=== PATIENT | male | born 1955 | race Caucasian/White ===

== ENCOUNTER 2017-03-17 16:36 | Observation (INO) | payer MEDICARE, OTHER ==
[2017-03-17] MEDS ORDERED: NITROGLYCERIN OINT 1 INCH/GM PACKET TOPICAL STA (16:54)
[2017-03-17] MEDS ORDERED: ASPIRIN 81 MG PO STA (16:54)
--- NOTE | 2017-03-17 16:57 | ED ---
Chest Pain HPI - General Chief Complaint: Chest Pain Stated Complaint: Chest Pain, Abnormal EKG Time Seen by Provider: 03/17/17 16:50 Source: patient, RN notes reviewed Mode of arrival: wheelchair Limitations: no limitations - History of Present Illness Initial Comments: This is a 61-year-old male with a history of heart disease bypass surgery at age 42 who states he had the onset of cold symptoms 2 days ago but about 12 noon today started developing retrosternal chest pain and pressure 4/10 severity. He went to see his doctor as he had an appointment anyway the pain did resolve after he was given nitroglycerin. He does state he takes 81 mg aspirin every night he has not taken any today thus far. He currently has no pain no fevers chills sweats cough or phlegm production. He reports no other complaints at this time he does state that his doctor saw some intermittent the on his EKG that was done in the office. A copy was sent for examination. MD Complaint: chest pain - Related Data Home Medications Medication Instructions Recorded Confirmed ALPRAZolam [Xanax] 1 mg PO TID PRN 03/17/17 03/17/17 Aspirin [Adult Low Dose Aspirin EC] 81 mg PO DAILY 03/17/17 03/17/17 Atorvastatin Calcium [Lipitor] 80 mg PO DAILY 03/17/17 03/17/17 Cholecalciferol [Vitamin D3] 5,000 unit PO DAILY 03/17/17 03/17/17 Dapagliflozin Propanediol [Farxiga] 10 mg PO DAILY 03/17/17 03/17/17 Enalapril Maleate [Vasotec] 20 mg PO DAILY 03/17/17 03/17/17 Exenatide Microspheres [Bydureon 2 mg SQ TU 03/17/17 03/17/17 Pen] Gemfibrozil [Lopid] 600 mg PO BID 03/17/17 03/17/17 HYDROcodone/APAP 10-325MG [[place] 1 tab PO QID PRN 03/17/17 03/17/17 10-325] Ibuprofen [Motrin] 800 mg PO TID PRN 03/17/17 03/17/17 Metoprolol Tartrate [Lopressor] 50 mg PO BID 03/17/17 03/17/17 Omeprazole 20 mg PO DAILY 03/17/17 03/17/17 Potassium Chloride ER [K-Dur 20] 20 meq PO DAILY 03/17/17 03/17/17 metFORMIN HCL 1,000 mg PO BID 03/17/17 03/17/17 Allergies Allergy/AdvReac Type Severity Reaction Status Date / Time No Known Allergies Allergy Verified 03/17/17 17:02 Review of Systems ROS Statement: Those systems with pertinent positive or pertinent negative responses have been documented in the HPI. ROS Other: All systems not noted in ROS Statement are negative. EKG Findings - EKG Results: EKG: interpreted by ADINAD (EKG shows sinus rhythm at 64 here 140 QRS 1:30 2T says QTC of 428/441 left exodeviation right bundle-branch block this was consistent with one submitted from the office.) Past Medical History Past Medical History: Diabetes Mellitus, Hearing Disorder / Deafness, Hypertension, Myocardial Infarction ([place]), Osteoarthritis ([place]) History of Any Multi-Drug Resistant Organisms: None Reported Past Surgical History: Coronary Bypass/CABG, Heart Catheterization With Stent Additional Past Surgical History / Comment(s): right leg Past Psychological History: No Psychological Hx Reported Smoking Status: Current some day smoker Past Alcohol Use History: None Reported Past Drug Use History: None Reported General Exam - General Exam Comments Initial Comments: This is a well-developed well-nourished awake alert oriented 3 male Limitations: no limitations General appearance: alert, in no apparent distress Head exam: Present: atraumatic, normocephalic, normal inspection Eye exam: Present: normal appearance, PERRL, EOMI. Absent: scleral icterus, conjunctival injection, periorbital swelling ENT exam: Present: normal exam, mucous membranes moist Neck exam: Present: normal inspection. Absent: tenderness, meningismus, lymphadenopathy Respiratory exam: Present: normal lung sounds bilaterally. Absent: respiratory distress, wheezes, rales, rhonchi, stridor Cardiovascular Exam: Present: regular rate, normal rhythm, normal heart sounds. Absent: systolic murmur, diastolic murmur, rubs, gallop, clicks GI/Abdominal exam: Present: soft, normal bowel sounds. Absent: distended, tenderness, guarding, rebound, rigid Extremities exam: Present: normal inspection, full ROM, normal capillary refill. Absent: tenderness, pedal edema, joint swelling, calf tenderness Back exam: Present: normal inspection Neurological exam: Present: alert, oriented X3, CN II-XII intact Psychiatric exam: Present: normal affect, normal mood Skin exam: Present: warm, dry, intact, normal color. Absent: rash Course Vital Signs 03/17/17 03/17/17 03/17/17 16:39 18:04 19:09 Temperature 97.3 F L 97.8 F Pulse Rate 71 69 69 Respiratory 16 18 18 Rate Blood Pressure 120/69 114/73 91/65 O2 Sat by Pulse 96 99 97 Oximetry Chest Pain MDM - MDM I did review the imaging and reports no acute findings. I did discuss case the patient and his family as well as with the on-call service patient will be admitted for evaluation by cardiology. Disposition Clinical Impression: Chest pain, Unstable angina pectoris Disposition: ADMITTED IP TO THIS HOSP Condition: Stable Referrals: Noble Rodriguez MD [Primary Care Provider] - 1-2 days
[2017-03-17 17:05] LABS: Basophils # (A) 0.1 k/uL (0-0.2); Basophils % (A) 1 %; CH 29.9; CHCM 33.9; Eosinophils # (A) 0.6 k/uL (0-0.7); Eosinophils % (A) 9 %; HCT 46.8 % (39.0-53.0); HDW 2.92; HGB 15.5 gm/dL (13.0-17.5); Luc # (Auto) 0.27; Luc % (Auto) 4; Lymphocytes # (A) 2.3 k/uL (1.0-4.8); Lymphocytes % (A) 33 %; MCH 29.3 pg (25.0-35.0); MCHC 33.1 g/dL (31.0-37.0); MCV 88.6 fL (80.0-100.0); Mean Platelet Volume 7.8; Monocytes # (A) 0.6 k/uL (0-1.0); Monocytes % (A) 8 %; Neutrophils # (A) 3.1 k/uL (1.3-7.7); Neutrophils % (A) 45 %; RBC 5.28 m/uL (4.30-5.90); WBC 6.8 k/uL (3.8-10.6); WBC (Perox) 6.87
--- NOTE | 2017-03-17 17:12 | XR ---
EXAMINATION TYPE: XR chest 2V DATE OF EXAM: 03/17/2017 COMPARISON: NONE HISTORY: Shortness of breath TECHNIQUE: Frontal and lateral views of the chest are obtained. FINDINGS: Scattered senescent parenchymal changes noted. Hyperinflation compatible with COPD. No evidence for infiltrate. No evidence for atelectasis. Heart size is stable. Mediastinal structures are stable and grossly unremarkable. No evidence for hilar prominence. Degenerative changes dorsal spine. IMPRESSION: 1. No evidence for acute pulmonary disease.
[2017-03-17 17:24] LABS: Partial Thromboplastin Time 22.5 sec (22.0-30.0); Prothrombin Time 10.2 sec (9.0-12.0)
[2017-03-17 17:32] LABS: Creatine Kinase 89 U/L (55-170)
[2017-03-17 17:34] LABS: ALT 33 U/L (21-72); AST 23 U/L (17-59); Alkaline Phosphatase 100 U/L (38-126); Anion Gap 14 mmol/L; Blood Urea Nitrogen 13 mg/dL (9-20); Calcium 11.2 mg/dL (8.4-10.2); Carbon Dioxide 22 mmol/L (22-30); Chloride 103 mmol/L (98-107); Glucose 97 mg/dL (74-99); Magnesium 1.7 mg/dL (1.6-2.3); Non-African American GFR(MDRD) >60 (>60 ml/min/1.73 sqM); Potassium 4.5 mmol/L (3.5-5.1); Sodium 139 mmol/L (137-145); Total Bilirubin 0.3 mg/dL (0.2-1.3); Total Protein 7.4 g/dL (6.3-8.2)
[2017-03-17 17:44] LABS: Creatine Kinase MB 1.1 ng/mL (0.0-2.4); Troponin I <0.012 ng/mL (0.000-0.034)
[2017-03-17] MEDS ORDERED: HEPARIN SODIUM,PORCINE 5,000 UNIT/ML 1 ML VIAL IV ONE (19:35)
[2017-03-17] MEDS ORDERED: NITROGLYCERIN SL TABS 0.4 MG TAB SUBLINGUAL PRN (19:35)
[2017-03-17] MEDS ORDERED: ALPRAZolam 0.5 MG TAB PO PRN (19:38)
[2017-03-17] MEDS ORDERED: IBUPROFEN 800 MG TAB PO PRN (19:38)
[2017-03-17] MEDS ORDERED: HYDROcodone/APAP 10-325MG 1 EACH TAB PO PRN (19:38)
[2017-03-17] MEDS ORDERED: SODIUM CHLORIDE 0.9% 1,000 ML IV SCH (19:45)
[2017-03-17] MEDS ORDERED: NON-FORMULARY DRUG (Exenatide Microspheres [Bydureon Pen] 2 MG) SQ SCH (19:45)
[2017-03-17] MEDS ORDERED: HEPARIN SODIUM,PORCINE/D5W PMX 25,000 UNIT in DEXTROSE/WATER 1 500ML.BAG IV SCH (19:45)
[2017-03-17 21:06] VITALS: BMI 32.5
[2017-03-17 21:24] LABS: Glucose,Whole Blood 122 mg/dL (75-99)
[2017-03-17] MEDS: GEMFIBROZIL 600 MG TAB PO SCH (21:39)
[2017-03-17] MEDS: METOPROLOL TARTRATE 50 MG TAB PO SCH (21:39)
[2017-03-17] MEDS: metFORMIN 500 MG TAB PO SCH (21:39)
[2017-03-17] MEDS: INSULIN LISPRO (humaLOG) 300 UNIT/3 ML VIAL SQ SCH (21:41)
--- NOTE | 2017-03-17 22:24 | P.HPIM ---
History of Present Illness H&P Date: 03/17/17 Chief Complaint: Chest pain This is a 61-year-old male patient of Michael Pittman with chronic stable medical conditions that include diabetes mellitus type 2, hard of hearing, hypertension, myocardial infarction, heart catheterization, coronary artery bypass grafting, osteoarthritis who presented to the emergency department who stated he had onset of cold symptoms about 2 days ago and was failing to get better. Had an appointment for later today with his primary care physician however about 12 noon today started developing retrosternal chest pain and pressure that was 4 out of 10 in severity. Called his physician was directed by the physician to come directly to the office, told that physician about the chest pain received nitroglycerin and chest pain was improved. Chest pain was described as retrosternal nonradiating no associated symptoms of diaphoresis nausea vomiting dizziness lightheadedness weakness. Given the patient's extensive cardiac history and history of diabetes was admitted for chest pain. REVIEW OF SYSTEMS GEN.: [ Tired] EYES: [Watery eyes] HEENT: [Congested nose] NECK: [None] RESPIRATORY: [Nonproductive dry hacking cough] CARDIOVASCULAR: [Chest pain ] GASTROINTESTINAL: [None] GENITOURINARY: [None] MUSCULOSKELETAL: [Painful joints] LYMPHATICS: [None] HEMATOLOGICAL: [None] PSYCHIATRY: [None] NEUROLOGICAL: [None] PAST MEDICAL HISTORY Past medical history: Diabetes mellitus type 2, hearing disorder, hypertension, myocardial infarction , osteoarthritis. 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 Smoking history: Occasional pipe smoking once every other month or so Alcohol use history: Denies Drug use history: Denies FAMILY HISTORY: Mother , 83 [place] Father: , 55, [place] HOME MEDICATION: Ibuprofen 800 mg by mouth 3 times a day when necessary Hydrocodone 10/325 one tablet by mouth 4 times a day when necessary Bydureon 2 mg subcu Thursday Alprazolam 1 mg by mouth 3 times a day when necessary Metformin 1000 mg by mouth twice a day Farxiga 10 mg by mouth daily Cholecalciferol 5000 units by mouth daily Atorvastatin 80 mg by mouth daily Aspirin 81 mg by mouth daily Omeprazole 20 mg by mouth daily Gemfibrozil 600 mg by mouth twice a day potassium chloride ER 20 mEq by mouth daily Metoprolol 50 mg by mouth twice a day Enalapril maleate 20 mg by mouth daily ALLERGIES: No known ALLERGIES VITAL SIGNS: [Temperature 98.1, pulse 72, respirations 16, blood pressure 96/66 , oxygen saturation 100% on 2 L. BMI noted] GENERAL: [Average built, sitting up, comfortable]. EYES: [Pupils equal. Conjunctiva rhina]l. HEENT: [External appearance of nose and ears normal, oral cavity grossly normal] . NECK: [JVD not raised; masses not palpable]. HEART: [First and second heart sounds are normal; no edema]. LUNGS:[ Respiratory rate normal; clear to auscultation]. ABDOMEN: [Soft, nontender, liver spleen not palpable, no masses palpable]. LYMPHATICS: [No lymph nodes palpable in the axilla and neck]. PSYCH: [Alert and oriented x3; mood and affect rhina]l. NEUROLOGICAL: [Cranial nerves grossly intact; no facial asymmetry, power and sensation grossly intact]. INVESTIGATIONS: CBC grossly unremarkable, BMP all values within normal limits. Accu-Cheks noted. ASSESSMENT: -Acute chest pain in a patient with an extensive cardiac history, somewhat pleuritic and atypical in nature, patient does currently have an upper respiratory infection -Coronary artery disease in a patient with history of CABG -Diabetes mellitus type 2 on oral and injectable hypoglycemics -Primary osteoarthritis in multiple joints bilateral -Hyperlipidemia -GERD -Essential hypertension -Chronic nicotine dependence, patient is a current smoker -Anxiety not otherwise specified PLAN: Home medications reordered cardiology consulted, heparin drip initiated. Plan of care discussed at length with at the bedside with patient and questions were answered to the best of my ability. He is in agreement we will follow closely. COOK HELPER MEAT STATEMENT: Patient was seen and examined by nurse practitioner Jonelle Rodríguez and all elements of the case discussed with attending Dr. Maher. Past Medical History Past Medical History: Diabetes Mellitus, Hearing Disorder / Deafness, Hypertension, Myocardial Infarction ([place]), Osteoarthritis ([place]) Additional Past Medical History / Comment(s): BACK PAIN Last Myocardial Infarction Date:: UNKNOWN History of Any Multi-Drug Resistant Organisms: None Reported Past Surgical History: Coronary Bypass/CABG, Heart Catheterization With Stent Additional Past Surgical History / Comment(s): right leg Past Anesthesia/Blood Transfusion Reactions: No Reported Reaction Date of Last Stent Placement:: 1997 Past Psychological History: No Psychological Hx Reported Smoking Status: Light tobacco smoker Past Alcohol Use History: None Reported Additional Past Alcohol Use History / Comment(s): OCCASIONALY USES A PIPE Past Drug Use History: None Reported - Past Family History Mother Family Medical History: Memory Impairment Father Family Medical History: Myocardial Infarction ([place]) Medications and Allergies Home Medications Medication Instructions Recorded Confirmed Type ALPRAZolam [Xanax] 1 mg PO TID PRN 03/17/17 03/17/17 History Aspirin [Adult Low Dose Aspirin EC] 81 mg PO DAILY 03/17/17 03/17/17 History Atorvastatin Calcium [Lipitor] 80 mg PO DAILY 03/17/17 03/17/17 History Cholecalciferol [Vitamin D3] 5,000 unit PO DAILY 03/17/17 03/17/17 History Dapagliflozin Propanediol [Farxiga] 10 mg PO DAILY 03/17/17 03/17/17 History Enalapril Maleate [Vasotec] 20 mg PO DAILY 03/17/17 03/17/17 History Exenatide Microspheres [Bydureon 2 mg SQ TU 03/17/17 03/17/17 History Pen] Gemfibrozil [Lopid] 600 mg PO BID 03/17/17 03/17/17 History HYDROcodone/APAP 10-325MG [[place] 1 tab PO QID PRN 03/17/17 03/17/17 History 10-325] Ibuprofen [Motrin] 800 mg PO TID PRN 03/17/17 03/17/17 History Metoprolol Tartrate [Lopressor] 50 mg PO BID 03/17/17 03/17/17 History Omeprazole 20 mg PO DAILY 03/17/17 03/17/17 History Potassium Chloride ER [K-Dur 20] 20 meq PO DAILY 03/17/17 03/17/17 History metFORMIN HCL 1,000 mg PO BID 03/17/17 03/17/17 History Allergies Allergy/AdvReac Type Severity Reaction Status Date / Time No Known Allergies Allergy Verified 03/17/17 17:02 Physical Exam Vitals: Vital Signs Temp Pulse Pulse Resp BP BP Pulse Ox 03/17/17 21:40 97.9 F 72 18 101/69 99 03/17/17 20:16 98.1 F 72 16 96/66 100 03/17/17 20:01 18 03/17/17 19:09 69 18 91/65 97 03/17/17 18:04 97.8 F 69 18 114/73 99 03/17/17 16:39 97.3 F L 71 16 120/69 96 Intake and Output 03/17/17 03/17/17 03/17/17 06:59 14:59 22:59 Other: Weight 78.018 kg Patient Weight 03/18/17 06:59 Weight 78.018 kg Results CBC & Chem 7: 03/18/17 02:34 03/18/17 02:34 Labs: Abnormal Lab Results - Last 24 Hours (Table) 03/17/17 03/17/17 03/17/17 Range/Units 16:53 16:53 21:22 RDW 16.0 H (11.5-15.5) % POC Glucose (mg/dL) 122 H (75-99) mg/dL Calcium 11.2 H (8.4-10.2) mg/dL
[2017-03-17 23:04] LABS: Creatine Kinase 60 U/L (55-170)
[2017-03-17 23:17] LABS: Creatine Kinase MB 0.9 ng/mL (0.0-2.4); Troponin I <0.012 ng/mL (0.000-0.034)
[2017-03-18 00:33] VITALS: RESP 18
[2017-03-18 03:39] LABS: Basophils # (A) 0.1 k/uL (0-0.2); Basophils % (A) 1 %; CHCM 33.3; Eosinophils # (A) 0.6 k/uL (0-0.7); Eosinophils % (A) 10 %; HCT 44.1 % (39.0-53.0); HDW 3.08; HGB 14.4 gm/dL (13.0-17.5); Luc # (Auto) 0.19; Luc % (Auto) 3; Lymphocytes # (A) 2.8 k/uL (1.0-4.8); Lymphocytes % (A) 43 %; MCH 29.5 pg (25.0-35.0); MCHC 32.6 g/dL (31.0-37.0); MCV 90.6 fL (80.0-100.0); Mean Platelet Volume 7.4; Monocytes # (A) 0.5 k/uL (0-1.0); Monocytes % (A) 8 %; Neutrophils # (A) 2.3 k/uL (1.3-7.7); Neutrophils % (A) 36 %; RBC 4.87 m/uL (4.30-5.90); RDW 14.5 % (11.5-15.5); WBC 6.5 k/uL (3.8-10.6); WBC (Perox) 6.11
[2017-03-18 03:54] LABS: Anion Gap 11 mmol/L; Blood Urea Nitrogen 15 mg/dL (9-20); Calcium 10.9 mg/dL (8.4-10.2); Carbon Dioxide 22 mmol/L (22-30); Chloride 104 mmol/L (98-107); Cholesterol 109 mg/dL (<200); Glucose 115 mg/dL (74-99); HDL Cholesterol 23 mg/dL (40-60); Non-African American GFR(MDRD) >60 (>60 ml/min/1.73 sqM); Potassium 4.3 mmol/L (3.5-5.1); Sodium 137 mmol/L (137-145)
[2017-03-18 05:15] LABS: Creatine Kinase 54 U/L (55-170)
[2017-03-18 05:28] LABS: Creatine Kinase MB 0.8 ng/mL (0.0-2.4); Troponin I <0.012 ng/mL (0.000-0.034)
[2017-03-18 06:46] LABS: Glucose,Whole Blood 113 mg/dL (75-99)
[2017-03-18] MEDS ORDERED: PANTOPRAZOLE 40 MG TABLET PO SCH (07:30)
[2017-03-18] MEDS ORDERED: POTASSIUM CHLORIDE ER 20 MEQ TAB.ER PO SCH (09:00)
[2017-03-18] MEDS ORDERED: ASPIRIN 81 MG PO SCH (09:00)
[2017-03-18] MEDS ORDERED: ASPIRIN 325 MG TAB PO SCH (09:00)
[2017-03-18] MEDS ORDERED: LISINOPRIL 20 MG TAB PO SCH (09:00)
[2017-03-18] MEDS ORDERED: ATORVASTATIN 80 MG TAB PO SCH (09:00)
[2017-03-18] MEDS ORDERED: REGADENOSON 0.4 MG/5 ML SYRINGE IV ONE (09:07)
[2017-03-18] MEDS ORDERED: AMINOPHYLLINE 500 MG/20 ML VIAL IV PRN (09:07)
[2017-03-18 11:09] VITALS: BP 117/80; PULSE 66; TEMP 98.5
--- NOTE | 2017-03-18 11:43 | ECHOF ---
Referral Reason:chest pain MEASUREMENTS -------- HEIGHT: 152.4 cm WEIGHT: 78.0 kg BP: RVIDd: 2.6 cm (< 3.3) IVSd: 0.8 cm (0.6 - 1.1) LVIDd: 4.2 cm (3.9 - 5.3) LVPWd: 0.9 cm (0.6 - 1.1) IVSs: 1.4 cm LVIDs: 2.6 cm LVPWs: 1.2 cm LA Diam: 3.7 cm (2.7 - 3.8) Ao Diam: 2.6 cm (2.0 - 3.7) AV Cusp: 1.3 cm (1.5 - 2.6) LA Diam: 3.3 cm (2.7 - 3.8) EPSS: 0.3 cm MV E [place]: 0.52 m/s MV DecT: 126 ms MV A [place]: 0.47 m/s MV E/A Ratio: 1.10 RAP: 5.00 mmHg RVSP: 30.74 mmHg MV EF SLOPE: 127.82 mm/s (70 - 150) MV EXCURSION: 1.94 cm (> 18.000) FINDINGS -------- Sinus rhythm. This was a technically adequate study. LV size, wall thickness and systolic function are normal, with an EF greater than 55%. The left carmen tricular size is normal. The right ventricle is normal in size. The left atrial size is normal. The right atrial size is normal. The aortic valve is trileaflet, and appears structurally normal. No aortic stenosis or regurgitation. The mitral valve leaflets are mildly thickened. No mitral regurgitation. Mild tricuspid regurgitation present. There is no evidence of pulmonary hypertension. The right v entricular systolic pressure, as measured by Doppler, is 30.74mmHg. Trace/mild (physiologic) pulmonic regurgitation. The aortic root size is normal. There is no pericardial effusion. CONCLUSIONS -------- 1. Sinus rhythm. 2. This was a technically adequate study. 3. LV size, wall thickness and systolic function are normal, with an EF greater than 55%. 4. The left ventricular size is normal. 5. The left atrial size is normal. 6. The aortic valve is trileaflet, and appears structurally normal. No aortic stenosis or regurgitati on. 7. The mitral valve leaflets are mildly thickened. 8. No mitral regurgitation. 9. Mild tricuspid regurgitation present. 10. There is no evidence of pulmonary hypertension. 11. Trace/mild (physiologic) pulmonic regurgitation. 12. The aortic root size is normal. 13. There is no pericardial effusion. DIRECTOR ADULT: Dania Portillo RDCS
--- NOTE | 2017-03-18 11:57 | NM ---
EXAMINATION TYPE: NM stress lexiscan cardiolite DATE OF EXAM: 03/18/2017 COMPARISON: NONE HISTORY: Chest pain TECHNIQUE: After the intravenous administration of 12 mCi Tc 99m Sestamibi - Cardiolite resting SPEC T images acquired 45 minutes post injection. The patient received 0.4mg Lexiscan, 29.9 mCi Tc 99m Sestamibi - Stress images obtained [address] injection FINDINGS: Review of stress and rest SPECT images demonstrates no distinct perfusion abnormality. Gated analysi s shows normal wall motion with an estimated left ventricular ejection fraction of 61 %. TID of 0.72. IMPRESSION: 1. No scintigraphic evidence for reversible ischemia. 2. Estimated left ventricular ejection fraction of 61%.
[2017-03-18] MEDS ORDERED: CHOLECALCIFEROL 1,000 UNIT TAB PO SCH (12:00)
[2017-03-18] MEDS: INSULIN LISPRO (humaLOG) 300 UNIT/3 ML VIAL SQ SCH ×2 (12:10→12:13)
[2017-03-18] MEDS: metFORMIN 500 MG TAB PO SCH (12:11)
[2017-03-18] MEDS: GEMFIBROZIL 600 MG TAB PO SCH (12:13)
[2017-03-18] MEDS: METOPROLOL TARTRATE 50 MG TAB PO SCH (12:14)
[2017-03-18 12:16] LABS: Glucose,Whole Blood 87 mg/dL (75-99)
[2017-03-18] MEDS ORDERED: LORATADINE-PSEUDOEPH 5-120 MG 1 EACH TAB.ER.12H PO PRN (12:30)
--- NOTE | 2017-03-18 12:34 | P.CRDCN ---
History of Present Illness Consult date: 03/18/17 History of present illness: This is a 61-year-old male past medical history significant for coronary artery disease with subsequent triple-vessel bypass in the late s, hypertension, hyperlipidemia, diabetes mellitus and intermittent pipe use. We have been asked to see the patient in consultation for complaints of left-sided chest pain described as tightness. He states that he has been feeling increasingly tired lately, was coughing and having nasal drainage. He went to see his primary care physician yesterday and explained his symptoms they performed an EKG he was sent to the hospital for further evaluation. He denies associated shortness of breath, dizziness, palpitations, nausea or diaphoresis. The pain does not radiate into his arms neck back or jaw. He states it was very intermittent in nature and lasted less than 15 minutes and resolved on its own. EKG reveals right bundle branch block. No old EKG for comparison at this time. Chest x-ray negative for any acute cardiopulmonary process. Blood pressure 116/72 heart rate is 65. Current cardiac medications include enalapril 20 mg daily, lopressor 50 mg BID, lopid 600 mg BID, aspirin 81mg daily and lipitor 80 mg daily. He states he followed with cardiology for a few years after his bypass but hasn't been back in over 10 years. Review of Systems CONSTITUTIONAL: Denies fever. Denies chills. EYES: Denies blurred vision. Denies vision changes. Denies eye pain. EARS, NOSE, MOUTH & THROAT: Denies headache. Denies sore throat. Denies ear pain. CARDIOVASCULAR: Complains of one episode of chest pain yesterday, resolved. Denies shortness of breath. Denies orthopnea. Denies PND. Denies palpitations. RESPIRATORY: Complains of cough. GASTROINTESTINAL: Denies abdominal pain. Denies diarrhea. Denies constipation. Denies nausea. Denies vomiting. MUSCULOSKELETAL: Denies myalgias. INTEGUMENTARY: Denies pruitis. Denies rash. NEUROLOGIC: Denies numbness. Denies tingling. Denies weakness. PSYCHIATRIC: Denies anxiety. Denies depression. ENDOCRINE: Denies fatigue. Denies weight change. Denies polydipsia. Denies polyurina. GENITOURINARY: Denies burning, hematuria or urgency with micturation. HEMATOLOGIC: Denies history of anemia. Denies bleeding. Past Medical History Past Medical History: Diabetes Mellitus, Hearing Disorder / Deafness, Hypertension, Myocardial Infarction ([place]), Osteoarthritis ([place]) Additional Past Medical History / Comment(s): BACK PAIN Last Myocardial Infarction Date:: UNKNOWN History of Any Multi-Drug Resistant Organisms: None Reported Past Surgical History: Coronary Bypass/CABG, Heart Catheterization With Stent Additional Past Surgical History / Comment(s): right leg Past Anesthesia/Blood Transfusion Reactions: No Reported Reaction Date of Last Stent Placement:: 1997 Past Psychological History: No Psychological Hx Reported Smoking Status: Light tobacco smoker Past Alcohol Use History: None Reported Additional Past Alcohol Use History / Comment(s): OCCASIONALY USES A PIPE Past Drug Use History: None Reported - Past Family History Mother Family Medical History: Memory Impairment Father Family Medical History: Myocardial Infarction ([place]) Medications and Allergies Home Medications Medication Instructions Recorded Confirmed Type ALPRAZolam [Xanax] 1 mg PO TID PRN 03/17/17 03/17/17 History Aspirin [Adult Low Dose Aspirin EC] 81 mg PO DAILY 03/17/17 03/17/17 History Atorvastatin Calcium [Lipitor] 80 mg PO DAILY 03/17/17 03/17/17 History Cholecalciferol [Vitamin D3] 5,000 unit PO DAILY 03/17/17 03/17/17 History Dapagliflozin Propanediol [Farxiga] 10 mg PO DAILY 03/17/17 03/17/17 History Enalapril Maleate [Vasotec] 20 mg PO DAILY 03/17/17 03/17/17 History Exenatide Microspheres [Bydureon 2 mg SQ TU 03/17/17 03/17/17 History Pen] Gemfibrozil [Lopid] 600 mg PO BID 03/17/17 03/17/17 History HYDROcodone/APAP 10-325MG [Duck 1 tab PO QID PRN 03/17/17 03/17/17 History 10-325] Ibuprofen [Motrin] 800 mg PO TID PRN 03/17/17 03/17/17 History Metoprolol Tartrate [Lopressor] 50 mg PO BID 03/17/17 03/17/17 History Omeprazole 20 mg PO DAILY 03/17/17 03/17/17 History Potassium Chloride ER [K-Dur 20] 20 meq PO DAILY 03/17/17 03/17/17 History metFORMIN HCL 1,000 mg PO BID 03/17/17 03/17/17 History Allergies Allergy/AdvReac Type Severity Reaction Status Date / Time No Known Allergies Allergy Verified 03/17/17 17:02 Physical Exam Vitals: Vital Signs Temp Pulse Pulse Resp BP BP Pulse Ox 03/18/17 08:00 97.9 F 65 18 116/72 96 03/18/17 07:40 100 03/18/17 04:49 97.9 F 63 18 107/71 97 03/17/17 23:55 97.7 F 55 L 18 107/65 96 03/17/17 21:49 18 03/17/17 21:40 97.9 F 72 18 101/69 99 03/17/17 20:16 98.1 F 72 16 96/66 100 03/17/17 20:01 18 03/17/17 19:09 69 18 91/65 97 03/17/17 18:04 97.8 F 69 18 114/73 99 03/17/17 16:39 97.3 F L 71 16 120/69 96 Intake and Output 03/17/17 03/18/17 03/18/17 22:59 06:59 14:59 Intake Total 160.992 Balance 160.992 Intake: Intake, IV Titration 160.992 Amount Heparin Sodium,Porcine/ 160.992 D5w Pmx 25,000 unit In Dextrose/Water 1 500ml. bag @ 12 UNITS/KG/HR 18. 72 mls/hr IV .Q24H [facility] Rx #:[id number] Other: # Voids 1 Weight 78.018 kg GENERAL: This is a 61-year-old male in no apparent distress at the time of my examination. HEENT: Head is atraumatic, normocephalic. Pupils are equal, round. Sclerae anicteric. Conjunctivae are clear. Mucous membranes of the mouth are moist. Neck is supple. There is no jugular venous distention. No carotid bruit is heard. LUNGS: Clear to auscultation no wheezes, rales or rhonchi. No chest wall tenderness is noted on palpation or with deep breathing. HEART: Regular rate and rhythm without murmurs, rubs or gallops. S1 and S2 heard. ABDOMEN: Soft, nontender. Bowel sounds are heard. No organomegaly noted. EXTREMITIES: 2+ peripheral pulses with no evidence of peripheral edema and no calf tenderness noted. NEUROLOGIC: Patient is awake, alert and oriented x3. Results 03/18/17 02:34 03/18/17 02:34 Cardiac Enzymes 03/17/17 03/17/17 03/17/17 Range/Units 16:53 16:53 22:33 AST 23 (17-59) U/L CK-MB (CK-2) 1.1 0.9 (0.0-2.4) ng/mL Troponin I <0.012 <0.012 (0.000-0.034) ng/mL 03/18/17 Range/Units 04:43 AST (17-59) U/L CK-MB (CK-2) 0.8 (0.0-2.4) ng/mL Troponin I <0.012 (0.000-0.034) ng/mL Coagulation 03/17/17 03/18/17 Range/Units 16:53 02:34 PT 10.2 (9.0-12.0) sec APTT 22.5 33.9 H (22.0-30.0) sec Lipids 03/18/17 Range/Units 02:34 Triglycerides 276 H (<150) mg/dL Cholesterol 109 (<200) mg/dL HDL Cholesterol 23 L (40-60) mg/dL CBC 03/17/17 03/18/17 Range/Units 16:53 02:34 WBC 6.8 6.5 (3.8-10.6) k/uL RBC 5.28 4.87 (4.30-5.90) m/uL Hgb 15.5 14.4 (13.0-17.5) gm/dL Hct 46.8 44.1 (39.0-53.0) % Plt Count 242 236 (150-450) k/uL Comprehensive Metabolic Panel 03/17/17 03/18/17 Range/Units 16:53 02:34 Sodium 139 137 (137-145) mmol/L Potassium 4.5 4.3 (3.5-5.1) mmol/L Chloride 103 104 (98-107) mmol/L Carbon Dioxide 22 22 (22-30) mmol/L BUN 13 15 (9-20) mg/dL Creatinine 0.77 0.90 (0.66-1.25) mg/dL Glucose 97 115 H (74-99) mg/dL Calcium 11.2 H 10.9 H (8.4-10.2) mg/dL AST 23 (17-59) U/L ALT 33 (21-72) U/L Alkaline Phosphatase 100 (38-126) U/L Total Protein 7.4 (6.3-8.2) g/dL Albumin 4.4 (3.5-5.0) g/dL Current Medications Generic Name Dose Route Start Last Admin Trade Name Freq PRN Reason Stop Dose Admin Hydrocodone Bitart/Acetaminophen 1 each 03/17/17 19:38 Duck 10 PO QID PRN Pain Alprazolam 1 mg 03/17/17 19:38 Xanax PO TID PRN Anxiety Aspirin 81 mg 03/18/17 09:00 Aspirin PO DAILY [facility] Atorvastatin Calcium 80 mg 03/18/17 09:00 Lipitor PO DAILY [facility] Cholecalciferol 5,000 unit 03/18/17 12:00 Vitamin D3 PO 1200 [facility] Gemfibrozil 600 mg 03/17/17 21:00 03/17/17 21:39 Lopid PO 600 mg BID [facility] Administration Heparin Sodium/Dextrose 25,000 500 mls @ 18.72 mls/hr 03/17/17 19:45 04:49 unit/ IV Solution IV 15 units/kg/hr .Q24H [facility] 23.4 mls/hr Protocol Titration 12 UNITS/KG/HR Ibuprofen 800 mg 03/17/17 19:38 Motrin PO TID PRN Pain Insulin Human Lispro 0 unit 03/17/17 21:00 03/17/17 21:41 Humalog SQ Not Given ACHS [facility] Protocol Lisinopril 40 mg 03/18/17 09:00 Zestril PO DAILY [facility] Metformin HCl 1,000 mg 03/17/17 21:00 03/17/17 21:39 Glucophage PO 1,000 mg BID [facility] Administration Metoprolol Tartrate 50 mg 03/17/17 21:00 03/17/17 21:39 Lopressor PO 50 mg BID [facility] Administration Nitroglycerin 0.4 mg 03/17/17 19:35 Nitrostat SUBLINGUAL Q5M PRN Chest Pain Non-Formulary Medication 2 mg 03/17/17 19:45 Exenatide Microspheres [Bydureon Pen] SQ TU [facility] Pantoprazole Sodium 40 mg 03/18/17 07:30 Protonix PO AC-BRKFST [facility] Potassium Chloride 20 meq 03/18/17 09:00 K-Dur 20 PO DAILY [facility] Sodium Chloride 10 ml 03/17/17 21:00 03/18/17 04:49 Saline Flush IV Not Given Q12HR [facility] Intake and Output 03/17/17 03/18/17 03/18/17 22:59 06:59 14:59 Intake Total 160.992 Balance 160.992 Intake: Intake, IV Titration 160.992 Amount Heparin Sodium,Porcine/ 160.992 D5w Pmx 25,000 unit In Dextrose/Water 1 500ml. bag @ 12 UNITS/KG/HR 18. 72 mls/hr IV .Q24H [facility] Rx #:[id number] Other: # Voids 1 Weight 78.018 kg 03/18/17 02:34 03/18/17 02:34 Assessment and Plan Assessment: ASSESSMENT 1. Chest pain, atypical for angina in light of cough and likely viral syndrome. Significant cardiac history. 2. History of CAD with triple vessel CABG in 1997 3. Hypertension 4. Hyperlipidemia 5. Diabetes mellitus 6. Tobacco abuse PLAN Obtain 2D echocardiogram and doppler study to assess cardiac structure and function. Perform lexiscan stress test to evaluate for progression of CAD. Smoking cessation discussed as well as other lifestyle modifications such as weight loss and increased daily activity recommended. Further recommendations will be based upon diagnostic testing results. Follow- up with a ply splicer is discussed and importance verbalized. He should see Dr. Coleman as an outpatient in 1-2 weeks. Nurse Practitioner note has been reviewed, I agree with a documented findings and plan of care. Patient was seen and examined.
--- NOTE | 2017-03-18 13:59 | HP ---
HISTORY AND PHYSICAL DATE OF SERVICE: 03/17/2017 ATTENDING NOTE: This patient was seen and examined by me. I discussed with nurse practitioner, Ms. Rodríguez. I saw this patient yesterday on 03/17/17. Patient is having some cold-like symptoms, also had chest pain lasting for good at least 2 hours. Has a known cardiac history. PHYSICAL EXAM: LUNGS: Slightly decreased breath sounds. CARDIOVASCULAR: First and second sounds normal. INVESTIGATIONS: Troponin negative. ASSESSMENT: Possible unstable angina with known coronary artery disease. PLAN: Home medications are resumed. Cardiology was consulted. Will follow. MMODL / IJN: [id number] /
--- NOTE | 2017-03-18 13:59 | EST ---
EXERCISE STRESS AGE: 61 SEX: M HT: 61" WT: 172 PROTOCOL: Lexiscan Cardiolite Stress Test HEART RATE REST: 58 BLOOD PRESSURE REST: 146/84 MAXIMUM HEART RATE ACHIEVED: 102 MAXIMUM BLOOD PRESSURE: 162/75 85% MPHR: 135 100% MPHR: 159 INDICATIONS: Abnormal EKG, chest pain. CLINICAL INFORMATION: Baseline rhythm is sinus mechanism, rate 58, right bundle branch block. Baseline blood pressure 146/84 mmHg. Patient received an injection of Lexiscan. Electrocardiographic monitoring revealed no evidence of diagnostic ischemic ST deviation. Cardiolite was injected per protocol. CONCLUSION: 1. Nondiagnostic electrocardiograph stress testing. 2. Nuclear images will be reported separately. MMODL / IJN: [id number] /
--- NOTE | 2017-03-18 19:08 | DS ---
DISCHARGE SUMMARY FINAL DIAGNOSES: 1. Anterior chest wall pain, could be musculoskeletal. 2. Coronary artery disease in a patient with known coronary bypass and stent. 3. Diabetes mellitus type 2 on oral hypoglycemic. 4. Hyperlipidemia. 5. Essential hypertension. 6. Primary osteoarthritis, multiple joints. 7. Chronic nicotine dependence. Patient is a cigarette smoker. HOSPITAL COURSE: This patient with known coronary artery disease, bypass and stent, who has got a viral upper respiratory tract infection-like symptoms present with anterior chest wall pain. Pain did not sound to be cardiac. Cardiac troponins were negative. The patient did undergo a nuclear stress test that came back negative. Seen by Cardiology. Carol to be discharged. EXAMINATION: LUNGS: Slightly decreased breath sounds. CARDIOVASCULAR: First and second sounds normal. LDL 31. DISCHARGE MEDICATIONS: 1. Xanax 1 mg p.o. t.i.d. p.r.n. 2. Aspirin 81 mg p.o. daily. 3. Lipitor 80 mg p.o. daily. 4. Vitamin D3 5000 units p.o. daily. 5. Farxiga 10 mg p.o. daily. 6. Vasotec 20 mg p.o. daily. 7. Pen 2 mg subcu Thursday. 8. Lopid 600 mg p.o. b.i.d. 9. [place] 10, 1 tablet p.o. q.i.d. p.r.n. 10.Motrin 800 mg p.o. t.i.d. p.r.n. 11.Lopressor 50 mg p.o. b.i.d. 12.Omeprazole 20 mg p.o. daily. 13.Potassium 20 mEq p.o. daily. 14.Metformin 1000 mg p.o. daily. FOLLOWUP: With Dr. Coleman in 2 weeks. Follow up with Dr. Rodriguez in 3 days. MMODL / IJN: [id number] /
== END 2017-03-18 15:21 | disposition home or self-care (01) ==
LOC: EC 16:36 → 3OBS 19:35
PROVIDERS: ADMIT Hospitalist; ATTEND Hospitalist
DX: R07.89 Other chest pain (principal); J06.9 Acute upper respiratory infection, unspecified; I10 Essential (primary) hypertension; F17.210 Nicotine dependence, cigarettes, uncomplicated; I25.10 Atherosclerotic heart disease of native coronary artery without angina pectoris; E11.649 Type 2 diabetes mellitus with hypoglycemia without coma; R94.31 Abnormal electrocardiogram [ECG] [EKG]; K21.9 Gastro-esophageal reflux disease without esophagitis; F41.9 Anxiety disorder, unspecified; M15.9 Polyosteoarthritis, unspecified; M54.9 Dorsalgia, unspecified; H91.90 Unspecified hearing loss, unspecified ear; Z95.1 Presence of aortocoronary bypass graft; Z95.5 Presence of coronary angioplasty implant and graft; I25.2 Old myocardial infarction; Z79.84 Long term (current) use of oral hypoglycemic drugs; Z79.82 Long term (current) use of aspirin; Z79.899 Other long term (current) drug therapy
CPT/HCPCS: 99285 ×2; 96365 ×2; 96376 ×2; 96366 ×2; 36415; 94760; 93005; 93017; 93306; 85379; 80061; 80053; 80048; 82550 ×2; 82553 ×2; 83735; 84484 ×2; 85025 ×2; 85610; 85730 ×2; 71020; 78452; G0378 ×2; A9500; J1644 ×2; J2785

== ENCOUNTER 2020-09-23 15:34 | Emergency (ER) | payer MEDICARE, OTHER ==
[2020-09-23 15:37] VITALS: BP 151/76; PULSE 71; RESP 18; TEMP 97.8
[2020-09-23] MEDS ORDERED: PROPARACAINE 0.5% OPHTH DROPS 15 ML BTL LEFT EYE STA (15:43)
[2020-09-23] MEDS ORDERED: FLUORESCEIN STRIPS 1 MG STRIP RIGHT EYE ONE (15:43)
[2020-09-23] MEDS ORDERED: DIPH,PERTUS(ACELL)TETVAC-LF 0.5 ML VIAL IM ONE (15:55)
[2020-09-23] MEDS ORDERED: ERYTHROMYCIN 5 MG/GM OPHTH OINT 3.5 GM TUBE RIGHT EYE STA (16:08)
--- NOTE | 2020-09-23 16:11 | ED ---
Eye Problem HPI - General Chief complaint: Eye Problems Stated complaint: Metal in R eye Time Seen by Provider: 09/23/20 15:42 Source: patient Mode of arrival: ambulatory Limitations: no limitations - History of Present Illness Initial comments: Rolando is a pleasant 64yo M who presents to the ER today via private vehicle for evaluation of foreign body in right eye. Reports that between 9:30 and 10 AM today he was working in his basement on a metal baler, he was not wearing eye protection and he felt something hit him in the eye. As the days progressed he's had progressive worsening of pain in the eye especially when he looks at light which prompted him to come to the ER for further evaluation. The patient does not believe his tetanus vaccine is up-to-date - Related Data Home Medications Medication Instructions Recorded Confirmed ALPRAZolam [Xanax] 1 mg PO TID PRN 03/17/17 03/17/17 Aspirin [Adult Low Dose Aspirin EC] 81 mg PO DAILY 03/17/17 03/17/17 Atorvastatin Calcium [Lipitor] 80 mg PO DAILY 03/17/17 03/17/17 Cholecalciferol [Vitamin D3 (25 5,000 unit PO DAILY 03/17/17 03/17/17 Mcg = 1000 Iu)] Dapagliflozin Propanediol [Farxiga] 10 mg PO DAILY 03/17/17 03/17/17 Enalapril Maleate [Vasotec] 20 mg PO DAILY 03/17/17 03/17/17 Exenatide Microspheres [Bydureon 2 mg SQ TU 03/17/17 03/17/17 Pen] Gemfibrozil [Lopid] 600 mg PO BID 03/17/17 03/17/17 HYDROcodone/APAP 10-325MG [[place] 1 tab PO QID PRN 03/17/17 03/17/17 10-325] Ibuprofen [Motrin] 800 mg PO TID PRN 03/17/17 03/17/17 Metoprolol Tartrate [Lopressor] 50 mg PO BID 03/17/17 03/17/17 Omeprazole 20 mg PO DAILY 03/17/17 03/17/17 Potassium Chloride ER [K-Dur 20] 20 meq PO DAILY 03/17/17 03/17/17 metFORMIN HCL 1,000 mg PO BID 03/17/17 03/17/17 Allergies Allergy/AdvReac Type Severity Reaction Status Date / Time No Known Allergies Allergy Verified 09/23/20 15:35 Review of Systems ROS Statement: Those systems with pertinent positive or pertinent negative responses have been documented in the HPI. ROS Other: All systems not noted in ROS Statement are negative. Past Medical History Past Medical History: Diabetes Mellitus, Hearing Disorder / Deafness, Hypert ension, Myocardial Infarction ([place]), Osteoarthritis ([place]) Additional Past Medical History / Comment(s): BACK PAIN Last Myocardial Infarction Date:: UNKNOWN History of Any Multi-Drug Resistant Organisms: None Reported Past Surgical History: Coronary Bypass/CABG, Heart Catheterization With Stent, Orthopedic Surgery Additional Past Surgical History / Comment(s): right leg Past Anesthesia/Blood Transfusion Reactions: No Reported Reaction Date of Last Stent Placement:: 1997 Past Psychological History: No Psychological Hx Reported Smoking Status: Never smoker Past Alcohol Use History: None Reported Past Drug Use History: None Reported - Past Family History Mother Family Medical History: Memory Impairment Father Family Medical History: Myocardial Infarction ([place]) General Exam - General Exam Comments Initial Comments: Physical Exam GENERAL: Patient is well-developed and well-nourished Patient is nontoxic and well-hydrated and is in no distress. HENT: Normocephalic, Atraumatic. EYES: PERRL, EOMI Right eye with punctate foreign body over iris at 7 o'clock position No rust ring Negative sidel sign PULMONARY: Unlabored respirations. CARDIOVASCULAR: RRR ABDOMEN: Non-distended SKIN: No rashes or bruising : Deferred NEUROLOGIC: Alert and oriented Normal speech Normal gait MUSCULOSKELETAL: Moving all extremities with no apparent injury PSYCHIATRIC: No SI/HI Limitations: no limitations Course Vital Signs 09/23/20 15:35 Temperature 97.8 F Pulse Rate 71 Respiratory 18 Rate Blood Pressure 151/76 O2 Sat by Pulse 97 Oximetry Medical Decision Making - Medical Decision Making Patient was seen and evaluated Eye was anesthetized Metal foreign body was removed using 18-gauge Angiocath No rust ring was present after removal of metal foreign body Forcing staining revealed negative Guillermo sign, small punctate lesion O other abrasions noted Patient was treated with erythromycin ointment Disposition Clinical Impression: Foreign body of right eye, Corneal abrasion, right Disposition: HOME SELF-CARE Condition: Stable Instructions (If sedation given, give patient instructions): Eye Lubricant (Into the eye) Additional Instructions: Apply Erythromycin Ointment every 4 hours while awake for 1 week Is patient prescribed a controlled substance at d/c from ED?: No Referrals: Noble Rodriguez MD [Primary Care Provider] - 1-2 days
== END 2020-09-23 16:45 | disposition home or self-care (01) ==
LOC: EC 15:34
DX: T15.01XA Foreign body in cornea, right eye, initial encounter (principal); E11.9 Type 2 diabetes mellitus without complications; I10 Essential (primary) hypertension; I25.2 Old myocardial infarction; M19.90 Unspecified osteoarthritis, unspecified site; H91.90 Unspecified hearing loss, unspecified ear; Z79.1 Long term (current) use of non-steroidal anti-inflammatories (NSAID); Z79.82 Long term (current) use of aspirin; Z79.84 Long term (current) use of oral hypoglycemic drugs; Z79.899 Other long term (current) drug therapy; Z82.49 Family history of ischemic heart disease and other diseases of the circulatory system; Z95.1 Presence of aortocoronary bypass graft
CPT/HCPCS: 65205; 90715; 99282

== ENCOUNTER 2020-11-20 10:46 | Emergency (ER) | payer MEDICARE, OTHER ==
[2020-11-20 10:53] VITALS: BP 150/87; PULSE 73; RESP 18; TEMP 98
[2020-11-20] MEDS ORDERED: KETOROLAC 15 MG/ML 1 ML VIAL IM STA (11:05)
--- NOTE | 2020-11-20 11:09 | ED ---
General Adult HPI - General Chief complaint: Extremity Injury, Upper Stated complaint: lt elbow injury/swelling Time Seen by Provider: 11/20/20 10:53 Source: patient, family, RN notes reviewed Mode of arrival: ambulatory Limitations: no limitations - History of Present Illness Initial comments: 65-year-old male with a past medical history of NIDDM, hypertension, back pain presents to the emergency room for a chief complaint of left elbow pain. Patient reports that about one week ago he was getting out of the boat and placed his hand on the dock. He went to hoist himself up and felt a pop in his elbow. States it had been painful since that time with mild swelling. Patient reports that 2 days ago he tripped over his skeet shooter in the carotids and fell onto the left hand and he reinjured the elbow. States he was a little bit more swollen at that time. Patient woke up today and the swelling was still there. However when he started working on a motor he notices swelling increased significantly. He went to his doctor's office. They referred him to the emergency room.Patient has no other complaints at this time including shortness of breath, chest pain, abdominal pain, nausea or vomiting, headache, or visual changes. - Related Data Home Medications Medication Instructions Recorded Confirmed ALPRAZolam [Xanax] 1 mg PO TID PRN 03/17/17 11/20/20 Atorvastatin Calcium [Lipitor] 80 mg PO HS 03/17/17 11/20/20 Dapagliflozin Propanediol [Farxiga] 10 mg PO DAILY 03/17/17 11/20/20 Enalapril Maleate [Vasotec] 20 mg PO DAILY 03/17/17 11/20/20 Gemfibrozil [Lopid] 600 mg PO BID 03/17/17 11/20/20 HYDROcodone/APAP 10-325MG [[place] 1 tab PO QID PRN 03/17/17 11/20/20 10-325] Metoprolol Tartrate [Lopressor] 50 mg PO BID 03/17/17 11/20/20 Omeprazole 20 mg PO DAILY 03/17/17 11/20/20 Potassium Chloride ER [K-Dur 20] 20 meq PO DAILY 03/17/17 11/20/20 metFORMIN HCL 1,000 mg PO BID 03/17/17 11/20/20 Aspirin 81 mg PO HS 11/20/20 11/20/20 Allergies Allergy/AdvReac Type Severity Reaction Status Date / Time No Known Allergies Allergy Verified 11/20/20 12:02 Review of Systems ROS Statement: Those systems with pertinent positive or pertinent negative responses have been documented in the HPI. ROS Other: All systems not noted in ROS Statement are negative. Past Medical History Past Medical History: Diabetes Mellitus, Hearing Disorder / Deafness, Hypertension, Myocardial Infarction ([place]), Osteoarthritis ([place]) Additional Past Medical History / Comment(s): BACK PAIN Last Myocardial Infarction Date:: UNKNOWN History of Any Multi-Drug Resistant Organisms: None Reported Past Surgical History: Coronary Bypass/CABG, Heart Catheterization With Stent, Orthopedic Surgery Additional Past Surgical History / Comment(s): right leg Past Anesthesia/Blood Transfusion Reactions: No Reported Reaction Date of Last Stent Placement:: 1997 Past Psychological History: No Psychological Hx Reported Smoking Status: Never smoker Past Alcohol Use History: None Reported Past Drug Use History: None Reported - Past Family History Mother Family Medical History: Memory Impairment Father Family Medical History: Myocardial Infarction ([place]) General Exam Limitations: no limitations General appearance: alert, in no apparent distress Head exam: Present: atraumatic Eye exam: Present: normal appearance, PERRL, EOMI. Absent: scleral icterus, conjunctival injection, periorbital swelling ENT exam: Present: normal exam, mucous membranes moist Neck exam: Present: normal inspection, full ROM. Absent: tenderness, meningismus, lymphadenopathy Respiratory exam: Present: normal lung sounds bilaterally. Absent: respiratory distress, wheezes, rales, rhonchi, stridor Cardiovascular Exam: Present: regular rate, normal rhythm, normal heart sounds. Absent: systolic murmur, diastolic murmur, rubs, gallop, clicks GI/Abdominal exam: Present: soft, normal bowel sounds. Absent: distended, tenderness, guarding, rebound, rigid Extremities exam: Present: normal capillary refill (Capillary refill less than 2 seconds, radial pulse 2+ left upper extremity), joint swelling (Significant edema noted of the dorsal elbow and proximal forearm radial aspect.), other (No warmth or redness noted around the edema. Sensation intact left upper extremity.). Absent: full ROM (Patient has full extension of the left elbow. Flexion to 90 only limited by swelling. Patient denies increased pain or pain limiting flexion. No pain with range of motion.), tenderness (No significant tenderness to edema.) Course Vital Signs 11/20/20 10:49 Temperature 98.0 F Pulse Rate 73 Respiratory 18 Rate Blood Pressure 150/87 O2 Sat by Pulse 96 Oximetry Procedures - Orthopedic Splinting/Casting Injury #1 Side: left Upper Extremity Injury Location: long arm Upper Extremity Immobilizer: posterior splint Additional Comments: Neurovascular status intact after splint applied. Medical Decision Making - Medical Decision Making Vitals are stable. The patient is afebrile. Has not had Motrin or Tylenol today. No history of fevers. Patient does have a history of injury 2. Patient has full extension and flexion to 90 only limited by swelling. He does not have pain with flexion. No erythema or increased warmth. Elbow x-ray shows severe soft tissue swelling with calcifications adjacent to the olecranon and elbow joint effusion. Findings are worrisome for ligamentous versus tendinous injury. I did discuss his case with Zhanna who spoke with Dr. Carr. States that as he has intact range of motion, the elbow is not red or hot, and patient is afebrile to splint him and follow-up in office in the next day or so. He will return here for any worsening symptoms Disposition Clinical Impression: Elbow pain, left, Elbow swelling Disposition: HOME SELF-CARE Condition: Good Instructions (If sedation given, give patient instructions): Elbow Sprain (ED) Additional Instructions: Please take Motrin and Tylenol for pain. Wear splint. Follow up with orthopedics for calling today for the earliest appointment. Return to the emergency room for any worsening symptoms. Is patient prescribed a controlled substance at d/c from ED?: No Referrals: Noble Rodriguez MD [Primary Care Provider] - 1-2 days Homer Carr MD [STAFF PHYSICIAN] - 1-2 days Time of Disposition: 12:16
--- NOTE | 2020-11-20 11:49 | XR ---
EXAMINATION TYPE: XR elbow complete LT DATE OF EXAM: 11/20/2020 CLINICAL HISTORY: Pain after fall TECHNIQUE: Frontal, lateral and oblique images of the left elbow are obtained. COMPARISON: None FINDINGS: There is no acute fracture/dislocation evident in the left elbow. There is severe soft tis jackson swelling about the elbow, particularly posteriorly and medially, with calcifications adjacent to the olecranon and elbow joint effusion. IMPRESSION: There is severe soft tissue swelling about the elbow, particularly posteriorly and medially, with urvashi cifications adjacent to the olecranon and elbow joint effusion. These findings are worrisome for liga mentous/tendinous injury.
== END 2020-11-20 12:26 | disposition home or self-care (01) ==
LOC: EC 10:46
DX: M25.422 Effusion, left elbow (principal); M25.522 Pain in left elbow; E11.9 Type 2 diabetes mellitus without complications; I10 Essential (primary) hypertension; I25.2 Old myocardial infarction; M19.90 Unspecified osteoarthritis, unspecified site; Z82.49 Family history of ischemic heart disease and other diseases of the circulatory system; Z79.84 Long term (current) use of oral hypoglycemic drugs; Z79.82 Long term (current) use of aspirin; Z79.899 Other long term (current) drug therapy; Z79.891 Long term (current) use of opiate analgesic; Z95.1 Presence of aortocoronary bypass graft; X50.1XXA Overexertion from prolonged static or awkward postures, initial encounter; Y92.814 Boat as the place of occurrence of the external cause
CPT/HCPCS: 73080; 29105; 96372; 99283; J1885

== ENCOUNTER → 2020-11-23 | Outpatient (CLI) | payer MEDICARE, OTHER ==
--- NOTE | 2020-11-23 07:15 | XR ---
EXAMINATION TYPE: XR chest 2V DATE OF EXAM: 11/23/2020 COMPARISON: 03/17/2017 HISTORY: MRI clearance TECHNIQUE: Frontal and lateral views of the chest are obtained. FINDINGS: There is no focal air space opacity, pleural effusion, or pneumothorax seen. The cardiac silhouette size is within normal limits. Sternotomy changes are present. No definite epicardial wires . The osseous structures are intact. IMPRESSION: No acute cardiopulmonary process.
== END | disposition home or self-care (01) ==
LOC: RADXRMAIN 06:32
PROVIDERS: ATTEND Physician Assistant
DX: Z13.89 Encounter for screening for other disorder (principal)
CPT/HCPCS: 71046

== ENCOUNTER 2023-07-10 09:58 | Day surgery (SDC) | payer MEDICARE, OTHER ==
--- NOTE | 2023-07-09 23:34 | HP ---
HISTORY AND PHYSICAL CHIEF COMPLAINT: Chronic laryngitis. HISTORY OF PRESENT ILLNESS: This patient is a 67-year-old male, who was recently seen in my office for evaluation of possible laryngeal mass. The information between the patient's and his is somewhat sketchy. He stated that he was having difficulty swallowing and soreness in his throat. He is a nonsmoker. He was originally seen at [facility] and was placed on antibiotics and steroids. He was subsequently referred to [facility], where he was scoped and they confirmed the presence of a mass in the vallecula. He completed the steroids and antibiotics. He stated that his throat felt somewhat better. He denied any dysphagia or referred otalgia. Although the patient does not smoke, his is a heavy smoker. I have cautioned the patient's that it is best that if she smokes outside the home. A CT scan of the neck with contrast was performed and this showed evidence of a mass in the left piriform sinus and vallecula. At the time that the patient was seen in the office, clinical examination including indirect laryngoscopy also confirmed the presence of a mass in the left piriform sinus and vallecula. Because of the suspicion of possible malignancy, it was recommended that the patient undergo a suspension microlaryngoscopy with biopsy and if the lesion is felt to be benign, then it would be removed with the CO2 laser. PAST MEDICAL HISTORY: Reveals that the patient has no known allergies to medications. MEDICATIONS: Currently medications include, 1. Xanax. 2. Aspirin. 3. Atorvastatin. 4. Enalapril. 5. Farxiga. 6. Motrin. 7. Metformin. 8. Metoprolol. 9. Nitrostat. 10.Prilosec. REVIEW OF SYSTEMS: CARDIOVASCULAR: Positive for hypertension and ASHD. GASTROINTESTINAL: Positive for GERD (gastroesophageal reflux disorder). METABOLIC AND ENDOCRINE: Positive for type 2 diabetes mellitus and hypercholesterolemia. The remainder of the review of systems is unremarkable. PAST SURGICAL HISTORY: Include flexible endoscopy and triple bypass surgery. PHYSICAL EXAMINATION: GENERAL: The patient is a 67-year-old male, who was alert and cooperative. HEENT: The patient is normocephalic. Tympanic membranes are normal. The middle ear spaces are free of any fluid or infection bilaterally. Pupils are equal, round, reactive to light and accommodation. Extraocular movements within normal limits. Intranasal examination reveals severe septal deviation to the left with bilateral compensatory hypertrophy of the inferior turbinates. Examination of the oropharynx including indirect laryngoscopy reveals no suspicious lesions of the floor of the mouth, but there is a suspicious lesion in the left piriform sinus, left vallecula. Both true vocal cords are normal. Right piriform sinus and right vallecula are normal. Remainder of the head and neck exam is unremarkable. CHEST/CARDIOVASCULAR: Both lung brown are clear to percussion and auscultation. The patient is in regular sinus rhythm. S1 and S2 are present without any murmurs. Peripheral pulses are bilaterally symmetrical. ABDOMEN: There is no evidence of any masses, megaly, or tenderness. Abdomen is soft. SKIN: Unremarkable. MUSCULOSKELETAL: Within normal limits. NEUROLOGICAL: Within normal limits. RECTAL: Deferred at this time because the patient has done on a regular basis at his family physician's office. The remainder of physical exam is unremarkable. ASSESSMENT: Laryngeal lesion, left vallecular mass. PLAN: The patient is scheduled to undergo suspension microlaryngoscopy with biopsy of laryngeal lesion and lesion of the hypopharynx with biopsy and possible laser under general anesthesia in a.m. Attention, RNs in the pre-surgical area: I have not ordered any pre-surgical prophylactic antibiotics for this patient. If the pharmacy department sends any pre- surgical prophylactic antibiotics to the pre-surgical area for this patient, that order should be cancelled, and the medication should be returned to the pharmacy department. Please make sure that the patient's account is credited appropriately. I have ordered for this patient to receive 1000 mg of Ofirmev IV to be given once an intravenous line has been established. I have discussed the risks, benefits and alternative therapies for the above-mentioned procedure and for both sedation/analgesia as well as necessary blood product administration, if indicated, as they pertain to this patient. The patient has indicated his understanding and acceptance of the risks and procedures discussed. MMODL / IJN: [id number] /
[~2023-07-10 09:58] MED LIST: Pre Op ABX Message 1 EACH MISC MISCELLANE ONE
[2023-07-10] MEDS ORDERED: MIDAZOLAM 2 MG/2 ML VIAL IV PRN (10:23)
[2023-07-10] MEDS: LACTATED RINGERS 1,000 ML IV SCH (10:28)
[2023-07-10] MEDS: ONDANSETRON 4 MG/2 ML VIAL IVP ONE (10:41)
[2023-07-10] MEDS: DEXAMETHASONE SOD PHOSPHATE 4 MG/ML 1 ML VIAL IV ONE (10:41)
[2023-07-10] MEDS: ACETAMINOPHEN IV (For NPO) 1,000 MG in EMPTY BAG 1 BAG IVPB ONE (10:41)
[2023-07-10 10:47] LABS: Glucose,Whole Blood 159 mg/dL (70-110)
[2023-07-10] MEDS ORDERED: LIDOCAINE 1% INJ 10MG/ML (20 ML MDV) ONE (12:26)
[2023-07-10] MEDS ORDERED: NEOSTIGMINE 1 MG/ML 10 ML VIAL ONE (12:26)
[2023-07-10] MEDS ORDERED: ROCURONIUM 10 MG/ML (5 ML VIAL) IV ONE (12:26)
[2023-07-10] MEDS ORDERED: GLYCOPYRROLATE 0.2 MG/ML 2 ML VIAL ONE (12:26)
[2023-07-10] MEDS ORDERED: SUCCINYLCHOLINE CHLORIDE 200 MG/10 ML VIAL IV ONE (12:26)
[2023-07-10] MEDS ORDERED: DEXAMETHASONE SOD PHOSPHATE 10 MG/ML 1 ML VIAL ONE (12:26)
[2023-07-10] MEDS ORDERED: MIDAZOLAM 2 MG/2 ML VIAL ONE (12:26)
[2023-07-10] MEDS ORDERED: fentaNYL (PF) 50 MCG/ML 2 ML AMP ONE (12:26)
[2023-07-10] MEDS ORDERED: PROPOFOL 10 MG/ML 20 ML VIAL IV ONE (12:26)
[2023-07-10] MEDS: LACTATED RINGERS 1,000 ML IV ONE (12:39)
[2023-07-10 14:02] LABS: Glucose,Whole Blood 227 mg/dL (70-110)
[2023-07-10] MEDS: HYDROmorphone 0.5 MG/0.5 ML SYRINGE IVP PRN (14:03)
[2023-07-10 14:06] VITALS: TEMP 96.8
[2023-07-10] MEDS: INSULIN ASPART (NovoLOG) 100 UNIT/ML VIAL SQ ONE (14:30)
[2023-07-10 14:44] VITALS: RESP 16
[2023-07-10 15:06] LABS: Glucose,Whole Blood 207 mg/dL (70-110)
[2023-07-10 15:21] VITALS: BP 136/83; PULSE 74
--- NOTE | 2023-07-13 19:19 | OP ---
OPERATIVE REPORT DATE OF SERVICE : 07/10/2023 PREOPERATIVE DIAGNOSIS: Lesion of the left vallecula, left piriform sinus. POSTOPERATIVE DIAGNOSIS: Lesion of the left vallecula, left piriform sinus, final pathology pending. PROCEDURE PERFORMED: Suspension microlaryngoscopy with multiple biopsies of the left vallecula and the left piriform sinus and CO2 laser of the biopsy site. COMPLICATIONS: None. ESTIMATED BLOOD LOSS: Less than 1 mL. DESCRIPTION OF PROCEDURE: This patient's surgery took place on 07/10/2023, and the patient was placed on the operating table in supine position. After uneventful induction and endotracheal intubation, satisfactory general anesthesia was obtained. Next, the patient's head was draped in usual customary fashion. Following this, the laryngoscope was introduced into the oropharynx and the entire hypopharynx including the right left piriform sinus. Vallecula, base of tongue were inspected. Next, the tip of the laryngoscope was placed at the laryngeal introitus and the laryngoscope was then suspended using the Lewy apparatus on the patient's chest. Inspection of the vocal cords revealed that there was no suspicious pathology. Next, using the Zeiss operating microscope and under magnified visualization, the laryngoscope was then repositioned to the left vallecula and left piriform sinus was noted that there appeared to be some abnormal appearing tissue in the left vallecula and left piriform sinus. Therefore, using a pair of straight microlaryngeal forceps, multiple biopsies were taken of the left vallecula and left piriform sinus. These specimens were sent separately in formalin to Pathology for permanent sectioning. The CO2 laser was then used to stop any bleeding at the biopsy sites. The patient was given 10 mg of Decadron intraoperatively to reduce any postoperative laryngeal edema. At this point, the procedure was terminated. There were no intraoperative complications. The patient tolerated the procedure well and was returned to the recovery room in satisfactory condition. Final pathology is pending. MMODL / IJN: [id number] /
== END 2023-07-10 15:05 | disposition home or self-care (01) ==
LOC: OR 09:58
PROVIDERS: ATTEND Otolaryngology
DX: J37.0 Chronic laryngitis (principal); J32.9 Chronic sinusitis, unspecified; I10 Essential (primary) hypertension; E78.5 Hyperlipidemia, unspecified; I25.10 Atherosclerotic heart disease of native coronary artery without angina pectoris; K21.9 Gastro-esophageal reflux disease without esophagitis; M19.90 Unspecified osteoarthritis, unspecified site; F41.9 Anxiety disorder, unspecified; E11.9 Type 2 diabetes mellitus without complications; Z79.84 Long term (current) use of oral hypoglycemic drugs; Z79.82 Long term (current) use of aspirin; Z79.899 Other long term (current) drug therapy
CPT/HCPCS: 31536; 88305; J2250; J0330; J1100 ×2; J2710; J2405; J2001; J3010; J0131; J2704; J1170